=== PATIENT | female | born 1990 | race Caucasian/White ===

== ENCOUNTER → 2017-11-23 | Outpatient (CLI) | payer BC ==
[~2017-11-23] MED LIST: ERYTHROMYCIN O3.5 GM RIGHT EYE; MEDROL DOSEPAK4 MG PO; MONONESSA1 EACH PO
== END | disposition home or self-care (01) ==
LOC: CDC 11:25
DX: Z01.810 Encounter for preprocedural cardiovascular examination (principal); K81.9 Cholecystitis, unspecified
CPT/HCPCS: 93000

== ENCOUNTER 2017-11-29 08:16 | Day surgery (SDC) | payer BC ==
[~2017-11-29] VITALS: Ht 162.6 cm; Wt 97.1 kg
[~2017-11-29 08:16] MED LIST changes: +AUGMENTIN875 MG PO; +INDERAL LA60 MG PO; +NEXPLANON68 MG SC
[2017-11-29 08:52] VITALS: BP 140/93
[2017-11-29] MEDS ORDERED: COLACE100 MG PO (11:25)
[2017-11-29] MEDS ORDERED: PERCOCET 5/31 TABLET PO (11:25)
[2017-11-29 12:49] VITALS: BP 114/73
[2017-11-29 13:52] VITALS: BP 106/72
[2017-11-29 15:44] VITALS: BP 128/87
== END 2017-11-29 15:44 | disposition home or self-care (01) ==
LOC: SDC 08:16
PROC: 0FT44ZZ Resection of Gallbladder, Percutaneous Endoscopic Approach (ICD-10-PCS; principal; 2017-11-29)
DX: K80.10 Calculus of gallbladder with chronic cholecystitis without obstruction (principal); I10 Essential (primary) hypertension; J45.909 Unspecified asthma, uncomplicated; E78.1 Pure hyperglyceridemia; E66.9 Obesity, unspecified; Z68.36 Body mass index [BMI] 36.0-36.9, adult; F41.1 Generalized anxiety disorder
CPT/HCPCS: 88304; J1100; J1170; J2250; J2405; J2710; J3010; J3475; J7643; Q0175; S0020; S0074